=== PATIENT | male | born 1995 | race Two or more races ===

== ENCOUNTER 2020-02-02 13:07 | Emergency (ER) | payer OTHER ==
[~2020-02-02] VITALS: Ht 177.8 cm; Wt 105.0 kg
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
[2020-02-02] MEDS ORDERED: OXYcodone/APAP 5/325MG TABLET PO ONE (13:30)
--- NOTE | 2020-02-02 13:39 | NUR ---
PT. WAS MEDICATED FOR PAIN IN THE [employer]. HE RECEIVED 100 MCG FENTANYL. PULSE OX AND CP MONITOR REMAIN IN PLACE.
[2020-02-02] MEDS ORDERED: OXYcodone/APAP 5/325MG TABLET ONE (13:59)
--- NOTE | 2020-02-02 14:38 | NUR ---
PT. REPORTS RELIEF FROM PAIN MEDICATION. PT. WAS GIVEN PANTS AND SOCKS. AWAITING DISCHARGE PAPERS.
[2020-02-02 15:07] VITALS: BP 120/70
--- NOTE | 2020-02-02 15:12 | NUR ---
Provided with jett wrap. crutches and ice packs. Reviewed sxs to watch for. Patient able to independently use crutches in safe manner
== END 2020-02-02 15:16 | disposition home or self-care (01) ==
LOC: ED 14:50
DX: S90.01XA Contusion of right ankle, initial encounter (principal); S90.31XA Contusion of right foot, initial encounter; X58.XXXA Exposure to other specified factors, initial encounter; Y93.89 Activity, other specified; Y92.69 Other specified industrial and construction area as the place of occurrence of the external cause; Y99.0 Civilian activity done for income or pay
CPT/HCPCS: 99284